=== PATIENT | female | born 1960 | race Caucasian/White ===

== ENCOUNTER → 2020-09-13 | Outpatient (CLI) | payer BC, OTHER ==
[~2020-09-13] MED LIST: ATORVASTATIN CA10 MG PO; LIPITOR TAB 1010 MG PO; LISINOPRIL5 MG PO; LYRICA75 MG PO; NORCO 5-325 TA1 EACH PO; PREGABALIN75 MG PO; RALOXIFENE HCL60 MG PO; ZYRTEC10 MG PO
== END ==
LOC: KOH-I 11:58
DX: M25.511 Pain in right shoulder (principal)
CPT/HCPCS: 73030

== ENCOUNTER → 2020-09-26 | Outpatient (CLI) | payer BC, OTHER | LOC: KOH-I 12:48 | DX: M25.511 Pain in right shoulder (principal); R29.898 Other symptoms and signs involving the musculoskeletal system; M75.81 Other shoulder lesions, right shoulder; M19.011 Primary osteoarthritis, right shoulder | CPT/HCPCS: 73221 ==

== ENCOUNTER → 2021-08-12 | Outpatient (CLI) | payer BC | LOC: KOH-I 08:06 | DX: M75.102 Unspecified rotator cuff tear or rupture of left shoulder, not specified as traumatic (principal); M67.814 Other specified disorders of tendon, left shoulder | CPT/HCPCS: 73221 ==

== ENCOUNTER → 2022-03-26 | Outpatient (CLI) | payer BC | LOC: EMI 03-23 11:00 → MRI 15:04 | DX: G43.909 Migraine, unspecified, not intractable, without status migrainosus (principal); R42 Dizziness and giddiness | CPT/HCPCS: 36415; 70553; 82565; 84520; A9577 ==